=== PATIENT | female | born 1990 | race Caucasian/White ===

== ENCOUNTER 2017-08-12 06:05 | Inpatient (IN) | payer OTHER ==
[~2017-08-12 06:05] MED LIST: ELECTROLYTE-148 SOLN 1,000 ML IV SCH
[2017-08-12] MEDS ORDERED: morphine SULFATE/Preservative Free 0.5 MG/ML (1cc Syringe) EP ONE (07:53)
[2017-08-12] MEDS ORDERED: ONDANSETRON 4 MG/2 ML VIAL IVPUSH PRN (07:53)
[2017-08-12 08:10] LABS: INR 0.96 (0.82-1.09); PROTHROMBIN TIME (PATIENT) 10.8 SEC (9.98-11.88)
[2017-08-12] MEDS ORDERED: ELECTROLYTE-148 SOLN 500 ML IV ONE (08:12)
[2017-08-12] MEDS ORDERED: CITRIC ACID/SODIUM CITRATE 30 ML UNIT-DOSE CUP PO ONE (08:12)
--- NOTE | 2017-08-12 08:17 | HP ---
Past Medical History - Admission Chief Complaint: Elective History of Present Illness: 26 yo @ 39 weeks gestation is pre op for repeat . History Source: Patient Limitations to Obtaining History: No Limitations - Past Medical History ...: 2 ...Para: 1 - Past Surgical History Past Surgical History: Yes: Hx Myomectomy: No Hx Transabdominal Cerclage: No - Smoking History Smoking history: Never smoked Have you smoked in the past 12 months: No - Alcohol/Substance Use Hx Alcohol Use: Yes (OCCAS) - Social History Usual Living Arrangement: Yes: With Significant Other History of Recent Travel: No Home Medications - Allergies Allergies/Adverse Reactions: Allergies Allergy/AdvReac Type Severity Reaction Status Date / Time No Known Drug Allergies Allergy Verified 08/03/17 13:17 - Home Medications Home Medications: Ambulatory Orders Pnv No.122/Iron/Folic Acid [ Multi Tablet] 1 tab PO DAILY 08/03/17 Family Disease History - Family Disease History Family History: Unremarkable Review of Systems - Review of Systems Constitutional: reports: No Symptoms Eyes: reports: No Symptoms HENT: reports: No Symptoms Neck: reports: No Symptoms Cardiovascular: reports: No Symptoms Respiratory: reports: No Symptoms Gastrointestinal: reports: No Symptoms Genitourinary: reports: No Symptoms Breasts: reports: No Symptoms Reported Musculoskeletal: reports: No Symptoms Integumentary: reports: No Symptoms Neurological: reports: No Symptoms Endocrine: reports: No Symptoms Hematology/Lymphatic: reports: No Symptoms Psychiatric: reports: No Symptoms Pain Intensity: 0 Physical Exam - Maternity Constitutional: Yes: Well Nourished Eyes: Yes: Conjunctiva Clear HENT: Yes: Atraumatic Neck: Yes: Supple Cardiovascular: Yes: Regular Rate and Rhythm Lungs: Clear to auscultation Breast(s): Yes: WNL - Abdominal Exam/OB Number of Fetuses: Single Presentation: Vertex - Physical Exam Musculoskeletal: Yes: WNL Extremities: Yes: WNL ...Motor Strength: WNL Psychiatric: Yes: Alert, Oriented Problem List - Problems (1) Previous delivery affecting , antepartum Code(s): O34.219 - MATERNAL CARE FOR UNSP TYPE SCAR FROM PREVIOUS DEL Assessment/Plan Pre op for repeat Consent signed Anesthesia to see patient
--- NOTE | 2017-08-12 08:19 | OP ---
Operative Note - Note: Operative Date: 08/12/17 Pre-Operative Diagnosis: Elective Operation: Repeat Low Transverse Findings: Baby girl in cephalic presentation Post-Operative Diagnosis: Same as Pre-op Surgeon: Stacy Stevenson Wax Cutter: Arthur Aguirre Anesthesia: Spinal Specimens Removed: Placenta Estimated Blood Loss (mls): 600 Operative Report Dictated: Yes
[2017-08-12 08:31] VITALS: BMI 32.3
[2017-08-12] MEDS ORDERED: METHYLERGONOVINE MALEATE 0.2 MG/1 ML AMP IM PRN (09:20)
[2017-08-12] MEDS ORDERED: oxyCODONE HCL 5 MG TABLET PO PRN (09:20)
[2017-08-12] MEDS ORDERED: OXYTOCIN 20 UNITS in 0.9% NS 20 UNIT/1,000 ML INFUS.BAG IV SCH (09:30)
[2017-08-12] MEDS: IBUPROFEN 800 MG/8 ML IJ IVPB PRN (11:26)
[2017-08-12] MEDS: HYDROmorphone HCL CARPU-JECT 1 MG/1 ML DISP.SYRIN IVPB PRN ×2 (14:08→19:53)
[2017-08-12] MEDS: SIMETHICONE 80 MG TAB.CHEW (FP) PO PRN (20:16)
[2017-08-13] MEDS: IBUPROFEN 800 MG/8 ML IJ IVPB PRN (00:33)
[2017-08-13] MEDS: SIMETHICONE 80 MG TAB.CHEW (FP) PO PRN ×4 (04:15→21:23)
--- NOTE | 2017-08-13 07:03 | PN ---
Post Progress Note - Subjective Subjective: Pt seen/evaluated this a.m. States she having incisional pain. No other complaints. Type of Delivery: Repeat C/S Vital Signs: Vital Signs Temperature 98.7 F 08/13/17 06:24 Pulse Rate 64 08/13/17 06:24 Respiratory Rate 20 08/13/17 06:24 Blood Pressure 134/78 08/13/17 06:24 O2 Sat by Pulse Oximetry (%) 100 08/12/17 11:00 Uterus: Yes: Fundus Firm, Fundus below umbilicus Incision: Yes: Dressing dry and intact, Sutures intact Abdomen/GI: Yes: Abdomen soft. No: Abdominal Distention, Passing flatus Lochia: Yes: Rubra Lochia, amount: Small Extremities: No: Edema Perineum: Yes: Intact Problem List - Problems (1) delivery delivered Code(s): O82 - ENCOUNTER FOR DELIVERY WITHOUT INDICATION Assessment/Plan 26 y/o POD#1 s/p repeat delivery - AFVSS - CBC pending - remove vitale catheter, encourage ambulation, analgesia prn - routine care
[2017-08-13] MEDS: oxyCODONE HCL 5 MG TABLET PO PRN ×2 (07:51→14:45)
[2017-08-13] MEDS: ACETAMINOPHEN 325 MG TABLET (FP) PO PRN ×3 (07:52→21:23)
[2017-08-13 08:40] LABS: BASOPHIL 0.3 % (0-2.0); EOSINOPHIL 0.2 % (0-4.5); MCH 28.9 pg (25.7-33.7); MEAN CELL VOLUME 87.6 fl (80-96); MEAN PLT VOLUME 9.2 fl (7.5-11.1); NEUTROPHILS 81.3 % (42.8-82.8); PLATELET COUNT 196 K/MM3 (134-434); RDW 14.6 % (11.6-15.6); WHITE BLOOD COUNT 13.1 K/mm3 (4.0-10.0)
[2017-08-13] MEDS ORDERED: BISACODYL 10 MG SUPP.RECT RC PRN (09:20)
[2017-08-13] MEDS: IBUPROFEN 600 MG TABLET (FP) PO PRN (21:22)
--- NOTE | 2017-08-14 08:21 | PN ---
Post Progress Note - Subjective Subjective: 26 yo Para 2 status post repeat , seen and evaluated. She's out of bed to chair and c/o incision pain. Post Day: 2 Type of Delivery: Repeat C/S Vital Signs: Vital Signs Temperature 98.6 F 08/13/17 22:00 Pulse Rate 68 08/13/17 22:00 Respiratory Rate 20 08/13/17 22:00 Blood Pressure 136/68 08/13/17 22:00 O2 Sat by Pulse Oximetry (%) 99 08/13/17 20:10 Breast Exam: Yes: Soft Uterus: Yes: Fundus Firm Incision: Yes: Dressing dry and intact, Other (Sterile strips in place) Abdomen/GI: Yes: Tolerating PO Lochia: Yes: Rubra Lochia, amount: Small Extremities: Yes: Calves non-tender Perineum: Yes: Intact Activity: Ambulating - Labs Labs: CBC WBC 13.1 K/mm3 (4.0-10.0) H 08/13/17 08:36 RBC 3.84 M/mm3 (3.60-5.2) 08/13/17 08:36 Hgb 11.1 GM/dL (10.7-15.3) 08/13/17 08:36 Hct 33.6 % (32.4-45.2) 08/13/17 08:36 MCV 87.6 fl (80-96) 08/13/17 08:36 MCH 28.9 pg (25.7-33.7) 08/13/17 08:36 MCHC 33.0 g/dl (32.0-36.0) 08/13/17 08:36 RDW 14.6 % (11.6-15.6) 08/13/17 08:36 Plt Count 196 K/MM3 (134-434) 08/13/17 08:36 MPV 9.2 fl (7.5-11.1) 08/13/17 08:36 Neutrophils % 81.3 % (42.8-82.8) 08/13/17 08:36 Lymphocytes % 12.3 % (8-40) 08/13/17 08:36 Monocytes % 5.9 % (3.8-10.2) 08/13/17 08:36 Eosinophils % 0.2 % (0-4.5) 08/13/17 08:36 Basophils % 0.3 % (0-2.0) 08/13/17 08:36 Problem List - Problems (1) Previous delivery affecting , antepartum Code(s): O34.219 - MATERNAL CARE FOR UNSP TYPE SCAR FROM PREVIOUS DEL Assessment/Plan Status post repeat Stable Continue routine postop care
--- NOTE | 2017-08-14 08:25 | DS ---
Physical Exam-ARMATURE AND [employer] W[employer]ER Vital Signs: Vital Signs Temperature 98.6 F 08/13/17 22:00 Pulse Rate 68 08/13/17 22:00 Respiratory Rate 20 08/13/17 22:00 Blood Pressure 136/68 08/13/17 22:00 O2 Sat by Pulse Oximetry (%) 99 08/13/17 20:10 Constitutional: Yes: Well Nourished Eyes: Yes: Conjunctiva Clear HENT: Yes: Atraumatic Neck: Yes: Supple Cardiovascular: Yes: Regular Rate and Rhythm Respiratory: Yes: Regular, CTA Bilaterally Gastrointestinal: Yes: Normal Bowel Sounds External Genitalia: Yes: Normal Vaginal Exam: Yes: Normal Cervix: Yes: Normal Uterus: Yes: Firm Breast(s): Yes: WNL Wound/Incision: Yes: Well Approximated, Steri Strips (in place) Neurological: Yes: Alert, Oriented ...Motor Strength: WNL Psychiatric: Yes: Alert, Oriented Labs: CBC, BMP 08/13/17 08:36 Delivery - Delivery Type of Anesthesia: Spinal Episiotomy/Laceration: None EBL (cc): 600 Delivery, Single - Stages of Labor Date of Delivery: 08/12/17 Time of Delivery: 08:42 Time Placenta Delivered: 08:43 - Condition of Infant 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 Present: No Infant Gender: Female Weight: 6 lb 11 oz Total Hours ROM (Hrs/Mins): 0hrs 2min - 1 Minute Total Score: 9 5 Minutes Total Score: 9 - Feeding Plan Initial Plan: Elected not to breastfeed exclusively throughout hospitalization Discharge Summary Reason For Visit: LABOR ADMIT Current Active Problems delivery delivered (Acute) Previous delivery affecting , antepartum (Acute) Procedures: Principal: Repeat Low Transverse Hospital Course: Routine Post op care Condition: Good - Instructions Diet, Activity, Other Instructions: Regular diet No driving, no lifting x 4 weeks F/U with MD in one week Referrals: Stacy Stevenson MD [Staff Physician] - Disposition: HOME - Home Medications Comprehensive Discharge Medication List: Ambulatory Orders Pnv No.122/Iron/Folic Acid [ Multi Tablet] 1 tab PO DAILY 08/03/17
[2017-08-14] MEDS: oxyCODONE HCL 5 MG TABLET PO PRN ×3 (08:54→23:54)
[2017-08-14] MEDS: SIMETHICONE 80 MG TAB.CHEW (FP) PO PRN ×3 (08:54→23:53)
[2017-08-14] MEDS: IBUPROFEN 600 MG TABLET (FP) PO PRN ×3 (08:55→23:53)
[2017-08-15] MEDS: SIMETHICONE 80 MG TAB.CHEW (FP) PO PRN (07:40)
[2017-08-15] MEDS: IBUPROFEN 600 MG TABLET (FP) PO PRN (07:40)
[2017-08-15] MEDS: ACETAMINOPHEN 325 MG TABLET (FP) PO PRN (07:41)
[2017-08-15 08:25] LABS: BASOPHIL 0.6 % (0-2.0); MCH 28.8 pg (25.7-33.7); MCHC 32.8 g/dl (32.0-36.0); MEAN CELL VOLUME 87.9 fl (80-96); MEAN PLT VOLUME 8.8 fl (7.5-11.1); NEUTROPHILS 67.9 % (42.8-82.8); PLATELET COUNT 222 K/MM3 (134-434); RDW 15.2 % (11.6-15.6); WHITE BLOOD COUNT 7.2 K/mm3 (4.0-10.0)
[2017-08-15 08:47] VITALS: BP 127/81; PULSE 72; TEMP 98
--- NOTE | 2017-08-18 16:16 | PATH ---
Surgical Pathology Report Patient Name: ANGELINA BURGOS Med. Rec. #: [id number] /Age/Gender: 1990 (Age: 26) / F Account: [id number] Location: [facility] OBS/SECURITY SYSTEMS INTEGRATOR Taken: 08/12/2017 Received: 08/13/2017 Reported: 08/18/2017 Physicians: Stacy Stevenson M.D. Specimen(s) Received PLACENTA Clinical History Final Diagnosis PLACENTA, SECTION: 389 g THIRD TRIMESTER PLACENTA WITH TRIVASCULAR UMBILICAL CORD AND UNREMARKABLE PLACENTAL MEMBRANES. Electronically Signed Ines De Luna M.D. Gross Description The specimen is received fresh labeled placenta and is a 389 gram, 16.5 x 13.5 x 2.0 cm. placenta with attached membranes and umbilical cord. The attached membranes are felix, thick, cloudy and insert marginally. The umbilical cord measures 25 cm. in length and averages 1 cm. in diameter. The cord inserts centrally. No true knots or strictures are identified. Cut surface of the umbilical cord reveals 3 vessels. The surface is jiménez-blue with minimal fibrin deposition and appropriate caliber vessels. The maternal surface is red-brown with focal defects. Sectioning reveals red-brown, spongy parenchyma. No lesions are identified. Door Attendant sections are submitted in three cassettes as follows: 1- membrane rolls and umbilical cord; 2-3- full thickness sections of placenta. 08/17/2017 saudi08/17/2017
== END 2017-08-15 13:30 | disposition home or self-care (01) | DRG 540 ==
LOC: JLDR 06:05 → J3W 11:45
PROVIDERS: ADMIT Obstetrics & Gynecology; ATTEND Obstetrics & Gynecology
PROC: 10D00Z1 Extraction of Products of Conception, Low, Open Approach (ICD-10-PCS; principal; 2017-08-12)
DX: O34.211 Maternal care for low transverse scar from previous cesarean delivery (principal); Z3A.39 39 weeks gestation of pregnancy; Z37.0 Single live birth
CPT/HCPCS: 36415; 85025; 85610; 88307-TC

== ENCOUNTER 2021-04-11 09:18 | Emergency (ER) | payer OTHER ==
[2021-04-11 09:39] VITALS: TEMP 98.4; BMI 26.6
[2021-04-11] MEDS ORDERED: SODIUM CHLORIDE 0.9% 500 ML INFUS.BAG IV ONE (09:57)
[2021-04-11] MEDS ORDERED: KETOROLAC TROMETHAMINE 30 MG/1 ML VIAL IVPB ONE (09:57)
[2021-04-11] MEDS ORDERED: METOCLOPRAMIDE HCL INJECTION 10 MG/2 ML VIAL IVPUSH ONE (09:57)
[2021-04-11] MEDS ORDERED: METOCLOPRAMIDE HCL INJECTION 10 MG/2 ML VIAL ONE (10:03)
[2021-04-11] MEDS ORDERED: KETOROLAC TROMETHAMINE 30 MG/1 ML VIAL ONE (10:03)
[2021-04-11 11:11] LABS: BASO % 0.2 % (0-2.0); HEMATOCRIT 41.5 % (32.4-45.2); HEMOGLOBIN 13.6 GM/dL (10.7-15.3); LYMPH % 27.8 % (8-40); MCHC 32.8 g/dl (32.0-36.0); MEAN CELL VOLUME 94.5 fl (80-96); MEAN PLT VOLUME 8.9 fl (7.5-11.1); MONO % 7.7 % (3.8-10.2); NEUT % 63.3 % (42.8-82.8); PLATELET COUNT 271 10^3/uL (134-434); RDW 13.2 % (11.6-15.6); WHITE BLOOD COUNT 7.9 K/mm3 (4.0-10.0)
[2021-04-11 11:23] LABS: HCG,QUALITATIVE URINE Negative
[2021-04-11 11:28] LABS: URINE APPEARANCE Clear; URINE BILIRUBIN Negative (NEGATIVE); URINE COLOR Yellow; URINE GLUCOSE (UA) Negative (NEGATIVE); URINE KETONE Negative (NEGATIVE); URINE LEUK ESTERASE Negative (NEGATIVE); URINE NITRITE Negative (NEGATIVE); URINE PROTEIN Negative (NEGATIVE); URINE UROBILINOGEN 0.2 mg/dL (0.2-1.0)
[2021-04-11 11:46] LABS: CALCIUM 8.8 mg/dL (8.5-10.1)
[2021-04-11 11:47] LABS: ALBUMIN 3.6 g/dl (3.4-5.0); BLOOD UREA NITROGEN 8.4 mg/dL (7-18)
[2021-04-11 11:50] LABS: CREATININE 0.5 mg/dL (0.55-1.3)
[2021-04-11 11:52] LABS: BILIRUBIN,TOTAL 0.4 mg/dL (0.2-1); TOT PROT 6.9 g/dl (6.4-8.2)
[2021-04-11 13:19] VITALS: BP 120/66; PULSE 66
== END 2021-04-11 13:18 | disposition home or self-care (01) ==
LOC: JER 09:18
PROC: 3E0333Z Introduction of Anti-inflammatory into Peripheral Vein, Percutaneous Approach (ICD-10-PCS; principal; 2021-04-11)
PROC: 3E033GC Introduction of Other Therapeutic Substance into Peripheral Vein, Percutaneous Approach (ICD-10-PCS; 2021-04-11)
DX: G44.89 Other headache syndrome (principal)
CPT/HCPCS: 36415; 80053; 81003; 84703; 85025; 87077; 87086; 93005; 93010; 99284-25